=== PATIENT | female | born 1955 | race Caucasian/White ===

== ENCOUNTER 2021-12-31 11:13 | Outpatient (CLI) | payer BC | END 2021-12-31 11:14 | disposition home or self-care (01) | LOC: CSHMAMMO 11:13 | PROVIDERS: ATTEND Internal Medicine | DX: Z12.31 Encounter for screening mammogram for malignant neoplasm of breast (principal); Z91.89 Other specified personal risk factors, not elsewhere classified | CPT/HCPCS: 77063; 77067 ==

== ENCOUNTER 2022-03-21 12:26 | Outpatient (CLI) | payer BC ==
[~2022-03-21 12:26] MED LIST: Iopamidol 300 61% 100 ML VIAL FS ONE
== END 2022-03-21 12:27 | disposition home or self-care (01) ==
LOC: CSHCT 12:26
PROVIDERS: ATTEND Internal Medicine Hematology & Oncology
DX: C54.1 Malignant neoplasm of endometrium (principal); K76.0 Fatty (change of) liver, not elsewhere classified
CPT/HCPCS: 71260; 74177; 82565; Q9967

== ENCOUNTER 2022-04-29 15:37 | Emergency (ER) | payer BC ==
[~2022-04-29 15:37] MED LIST changes: -Iopamidol 300 61% 100 ML VIAL FS ONE; +Iopamidol 370 76% 100 ML VIAL ONE
[2022-04-29 17:27] LABS: #Eosinphils 0.1 10x3/uL (0.0-0.5); #Monocytes 0.8 10x3/uL (0.0-1.1); #Neutrophils 5.7 10x3/uL (1.5-8.4); %Basophils 0.4 % (0.0-2.0); %Eosinophils 1.5 % (0.0-6.0); %Neutrophils 70.9 % (40.0-75.0); Hemoglobin 13.5 g/dL (12.0-15.5); Mean Corpuscular HGB CONC 32.9 g/dL (32.0-36.0); Mean Corpuscular Hemoglobin 30.4 pg (27.0-33.0); Mean Corpuscular Volume 92.3 fl (81.6-98.3); Mean Platelet Volume 11.4 fl (7.4-10.4); Platelet Count 216 10x3/uL (150-450); RBC Distribution Width 13.6 % (11.5-14.5); Red Blood Cell (RBC) Count 4.44 10x6/uL (3.90-5.03)
[2022-04-29 17:46] LABS: ALT (SGPT) 37 U/L (8-55); AST (SGOT) 24 U/L (5-34); Albumin 4.4 g/dL (3.4-4.8); Alkaline Phosphatase 71 U/L (40-110); Anion Gap 14 mmol/L (10-20); BUN (Urea Nitrogen) 30 mg/dL (9.8-20.1); Bilirubin, Total 0.4 mg/dL (0.2-1.2); Calc. Creatinine Clearance 0 mL/min (70-130); Calcium 9.4 mg/dL (7.8-10.44); Carbon Dioxide 28 mmol/L (23-31); Chloride 99 mmol/L (98-107); Estimated GFR 53; Globulin 2.6 g/dL (2.4-3.5); Glucose 96 mg/dL (80-115); Potassium 3.9 mmol/L (3.5-5.1); Sodium 137 mmol/L (136-145)
== END 2022-04-29 18:50 | disposition home or self-care (01) ==
LOC: CSHERS 15:37
DX: R06.02 Shortness of breath (principal); I10 Essential (primary) hypertension
CPT/HCPCS: 71045; 71275; 80053; 83880; 84484; 85025; 93005; Q9967

== ENCOUNTER 2023-12-21 13:48 | Outpatient (CLI) | payer MEDICARE | END 2023-12-21 13:49 | disposition home or self-care (01) | LOC: CSHMAMMO 13:48 | PROVIDERS: ATTEND Internal Medicine | DX: Z12.31 Encounter for screening mammogram for malignant neoplasm of breast (principal); Z13.820 Encounter for screening for osteoporosis; M85.89 Other specified disorders of bone density and structure, multiple sites; Z91.89 Other specified personal risk factors, not elsewhere classified; Z78.0 Asymptomatic menopausal state | CPT/HCPCS: 77063; 77067; 77080 ==